=== PATIENT | male | born 1940 | race Caucasian/White ===

== ENCOUNTER 2019-01-28 08:14 | Day surgery (SDC) | payer OTHER ==
[2016-05-06 03:43] VITALS: BMI 23.5
[2019-01-28 09:24] VITALS: TEMP 97
[2019-01-28] MEDS ORDERED: LIDOCAINE 1% 20 ML MDV ID STA (09:25)
[2019-01-28] MEDS ORDERED: LIDOCAINE 1% 20 ML MDV ID ONE (09:44)
[2019-01-28] MEDS ORDERED: DIPRIVAN 20 ML VIAL IVP ONE (09:50)
[2019-01-28 13:55] VITALS: BP 168/78
--- NOTE | 2019-01-29 11:36 | OP ---
PROCEDURE: COLONOSCOPY TO THE CECUM. ENDOSCOPIST: Stephanie RODRIGUEZ M.D. INDICATION: CHANGE IN BOWEL HABITS. HISTORY OF POLYPS. INSTRUMENT: [employer]-190. MEDICATION: PER ANESTHESIA. PROCEDURE: The patient was positioned for colonoscopy. The digital rectal exam was negative. The colonoscope was inserted through the anus and advanced to the cecum. The cecum was identified using the ileocecal valve and the appendiceal orifice as landmarks. The scope was slowly withdrawn through an adequately prepped colon. No evidence of polyp or mass. A scattered diverticuli. Retroflex exam was otherwise normal. Withdraw time 8 minutes and 32 seconds. PLAN: 1. Repeat exam as needed. CC: Dr. Jeff MENDOZA
== END 2019-01-28 10:55 | disposition home or self-care (01) ==
LOC: SURG 08:14
PROVIDERS: ATTEND Internal Medicine Gastroenterology
DX: R10.9 Unspecified abdominal pain (principal); R19.4 Change in bowel habit; Z86.010 Personal history of colon polyps
CPT/HCPCS: 00812; G0105

== ENCOUNTER 2020-05-15 11:36 | Inpatient (IN) ==
[2020-05-15 12:18] VITALS: BMI 22.2
[2020-05-15 12:35] LABS: BASOPHILS % (AUTO) 0.2 % (0.0-3.0); EOSINOPHILS # (AUTO) 0.1 K/ul (0.0-0.7); EOSINOPHILS % (AUTO) 1.9 % (0.0-7.0); HEMATOCRIT 34.9 % (42.0-52.0); HEMOGLOBIN 12.3 g/dl (14.0-18.0); IMMATURE GRANULOCYTE % (AUTO) 0.9 % (0.0-5.0); LYMPHOCYTES % (AUTO) 21.3 (10.0-50.0); MEAN CORPUSCULAR HGB CONC 35.2 (31.8-35.4); MEAN CORPUSCULAR VOLUME 85.1 fl (80.0-94.0); MONOCYTES # (AUTO) 0.5 K/uL (0.4-2.0); MONOCYTES % (AUTO) 9.8 (0-10); NEUTROPHILS # (AUTO) 3.1 K/ul (2.0-6.9); NEUTROPHILS % (AUTO) 65.9 % (42.2-75.2); PLATELET COUNT 278 10^3/uL (140-440); RDW COEFFICIENT OF VARIATION 12.5 % (11.6-14.8)
[2020-05-15 12:54] LABS: ALANINE AMINOTRANSFERASE 109.6 U/L (0-50); ALBUMIN 4.23 g/dL (3.5-5.0); ALKALINE PHOSPHATASE 289.4 U/L (56-119); ASPARTATE AMINO TRANSFERASE 55.9 U/L (17-59); BILIRUBIN,TOTAL 0.73 mg/dL (0.2-1.3); BLOOD UREA NITROGEN 24.3 mg/dL (9-20); CALCIUM 10.54 mg/dL (8.4-10.2); CHLORIDE 96.8 mmol/L (98-107); CREATININE 1.61 mg/dL (0.60-1.10); GLUCOSE 214.7 mg/dL (74-106); POTASSIUM 4.15 mmol/L (3.5-5.1); SODIUM 133.6 mmol/L (134.5-145); TOTAL PROTEIN 7.75 g/dL (6.3-8.2)
--- NOTE | 2020-05-15 15:50 | RS.PTINEVL ---
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 pt states he has been falling at home due to weakness. Nursing reports pt began home health PT yesterday. Reports his last fall was on Mon in the bathroom of his home. - Level of function Abilities prior to this admission: prior to covid was independent with ADL's and amb without AD. pt has been using rwx and having assist of due to weakness from COVID Current Level of Function: Partially Dependent Current Equipment Used at Home: CANE, WALKER, CRUTCHES, GLUCOMETER, DM SUPPLIES, SPO2 MONITOR Pain Assessement - Location low back Description: Aching Pain Aggravating Factors: Changing Position Effects of Pain: pt reports a long history of low back pain. Interventions - Objective Patient Orientation: Person, Place, Time, Situation Current Interventions: IV's, Oxygen (2 liters), Telemetry Range of Motion - ROM Right Upper Extremity AROM: WFL's Left Upper Extremity AROM: WFL's Right Lower Extremity AROM: WFL's Left Lower Extremity AROM: WFL's Muscle Strength - Muscle Strength Right Upper Extremity Strength: Mild Weakness (grossly 4-/5) Left Upper Extremity Strength: Mild Weakness (grossly 4-/5) Right Lower Extremity Strength: Mild Weakness (hip flex 4-/5, knee flex/ext 4/5, ankle DF/PF 4/5) Left Lower Extremity Strength: Mild Weakness (hip flex 4-/5, knee flex/ext 4/5, ankle DF/PF 4/5) Sensation - Sensation Right Upper Extremity Sensation: Intact/Normal Left Upper Extremity Sensation: Intact/Normal Right Lower Extremity Sensation: Intact/Normal Left Lower Extremity Sensation: Intact/Normal Palpation Palpation Findings: None/Normal Balance - Sitting Balance and Reactions Static Sitting Balance: Good Dynamic Sitting Balance: Fair - Standing Balance and Reactions Static Standing Balance: Fair Dynamic Standing Balance: Poor Standing Equilibrium Reactions: Delayed Left, Delayed Right Standing Protective Reactions: Delayed Left, Delayed Right Functional Mobility - Bed Mobility Rolling R/L: Supervision Supine to Sit: Supervision - Transfers Sit to Stand: CGA Stand to Sit: CGA - Safety Awareness Safety Awareness: Fair YANIRA INDEX SCORE: n/a Ambulation - Ambulation Assistive Device Used: Rolling Walker Orthotic/Prosthetic Device: No Distance: 112ft Assistance needed with Ambulation: CGA Quality of Ambulation: pt amb with 2 liters O2. Gait Deviations: Forward posture, Short stride, Deviates from path Ambulation Comments: min SOA noted after amb. Factors Affecting Ambulation: Decreased Balance, Breathing/O2 Saturation, Weakness, Decreased Coordination, Decreased Safety, Limited Endurance Treatment time - Time with patient Length of Evaluation: 21 Total treatment time: 30 Patient Education - Education Patient Education: Activity Modification, Education of Plan of Care Teaching Recipient: Patient Teaching Methods: Discussion Comments: discussion regarding POC as well as safety precautions. Assessment - Assessment Problem List:: Decreased level of function, Requires training/education, Decreased safety/Risk of falls, Weakness Rehab Potential: Good Further Therapy Indicated?: Yes Candidate for Swing Bed for Therapy Services?: Feel pt may be a candidate for swing bed, will need to reassess on Monday05/18/20. Evaluation Complexity: HISTORY: Medium (h/o Covid, htn, oa, DM, falls), EXAM OF BODY SYSTEMS: Medium (strength, balance, gait, SOA), CLINICAL PRESENTATION: Medium, CLINICAL DECISION MAKING: Medium Patient's Goal(s): get stronger and return home Short Term Goals GOAL #1: pt independent with rolling, scooting in bed. Goal to be met by: 05/18/20 GOAL #2: Transfer sup to/from sit independently Goal to be met by: 05/18/20 GOAL #3: pt transfer sit to/from stand CGA Goal to be met by: 05/18/20 GOAL #4: Improve dyn stand balance fair- Goal to be met by: 05/18/20 GOAL #5: pt amb 120ft with rwx with O2 with CGA to SBA Goal to be met by: 05/18/20 Cribbing Setter Goals GOAL #1: pt independent with all transfers Goal to be met by: 05/20/20 GOAL #2: pt amb functional household distances with rwx and O2 with supervision Goal to be met by: 05/20/20 GOAL #3: Improve BLE strength 4 to 4+/5 Goal to be met by: 05/20/20 Plan Plan of Care: Therapeutic EX, Therapeutic Activity Other:: gait training Frequency of Treatment: 1-2 X day, as tolerated Duration of Treatment: 5 days Anticipated Discharge Destination: Home Treatment Diagnosis (ICD 10 Codes): personal history of COVID 19 Z86.19. gait difficulty R26.2. impaired balance R 26.81. weakness M62.81 Has the Physician been added for Co-signature?: Yes
--- NOTE | 2020-05-15 15:56 | RS.OTINEVL ---
Subjective - Patient information Date of Arrival on Unit: 05/15/20 Admitted From:: Home Diagnosis: Weakness and Falls PRECAUTIONS: Weakness, Falls, Usual Living Arrangement: With Spouse Living Arrangement Comments: LIVES WITH IN [facility]. 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), Diabetes, Arthritis Medical History Comments:: CAD LATEX ALLERGY?: No Surgical History: Hip Replacement, Cervical Spine (x 2), Lumbar Spine (x 2), Cholecystectomy Surgical History Comments:: shoulder surgery Medications: see chart - Level of function Current Equipment Used at Home: CANE, WALKER, CRUTCHES, GLUCOMETER, DM SUPPLIES, SPO2 MONITOR Pain Assessment - Pain Pain Score: 4 Side: bilateral Pain Location Body Site: Back Pain Aggravating Factors: ADL's, Changing Position, Standing Pain Alleviating Factors: Medication, Position Change Interventions - Objective Patient Orientation: Person, Place, Time, Situation Current Interventions: IV's, Oxygen, Telemetry Observation: Pt is weak and would benefit from occupational therapy to increase safety of functional transfers, increase strength for functional mobility and safety of self cares. Pt shows weakness with activity. Interventions - ROM Right Upper Extremity AROM: Slight limitation Left Upper Extremity AROM: WFL's - Strength Right Upper Extremity Strength: Mild Weakness Left Upper Extremity Strength: Mild Weakness - Sensation Right Upper Extremity Sensation: Intact/Normal Left Upper Extremity Sensation: Intact/Normal Balance - Sitting Balance Static Sitting Balance: Fair Dynamic Sitting Balance: Fair - Standing Balance Static Standing Balance: Poor Dynamic Standing Balance: Poor ADL Skills - Self Feeding Self Feeding: Independent - Grooming Grooming: CGA - Dressing Dressing UE: Min Assist Dressing LE: Min Assist - Toilet Management Toileting Management: Min Assist Functional Mobility - Bed Mobility Rolling R/L: CGA Scooting: CGA Supine to Sit: CGA - Transfers Sit to Stand: Supervision Stand to Sit: Supervision Stand Pivot Transfers: Supervision - Ambulation Weight Bearing Status: FWB Assistive Device Used: Rolling Walker Assistance needed with Ambulation: CGA - Safety Awareness Safety Awareness: Fair YANIRA INDEX SCORE: . Additional Treatment Performed - Time with patient Length of Evaluation: 20 Total treatment time: 23 Activities Do you enjoy playing games?: Yes Would you be interested in leaving your room for activities?: Yes Would you enjoy group activities?: Yes What types of things do you enjoy doing? Any Hobbies?: singing Patient Interests:: Visiting/Socializing Patient Education Patient Education: Education of diagnosis, Home Exercise Program, Education of Plan of Care Teaching Recipient: Patient Teaching Methods: Discussion Assessment Problem List:: Decreased level of function, Requires training/education, Decreased safety/Risk of falls, Weakness, Pain limits previous level of function Rehab Potential: Fair Further Therapy Indicated?: Yes Evaluation Complexity: HISTORY: Medium, EXAM OF BODY SYSTEMS: Medium, CLINICAL DECISION MAKING: Medium Patient's Goal(s): Pt wants to get stronger and return home with his spouse. Short Term Goals - Goals GOAL 1: Pt to be Supervision for toilet transfers with RW. Goal to be met by: 05/18/20 GOAL 2: Pt to increase BUE strength to 4/5 to increase (I) of ADLS. Goal to be met by: 05/19/20 GOAL 3: Pt to increase dyn. std. balance to Fair for self cares. Goal to be met by: 05/19/20 GOAL 4: Pt to increase activity tolerance to 10 minutes with rests PRN. Care Home Goals GOAL 1: Pt to be modified independent with ADLS. Goal to be met by: 05/22/20 GOAL 2: Pt to increase dyn. std. balance to Fair+ to complete sink Goal to be met by: 05/22/20 GOAL 3: Pt to increase BUE strength to 4+/5. Goal to be met by: 05/22/20 Plan Plan of Care: Therapeutic EX, Neuromuscular Re-Educ, Therapeutic Activity, Self- Care/Home Management Modalities: Hot Pack Frequency of Treatment: 1-2 X day, as tolerated Duration of Treatment: 1 Week Anticipated Discharge Destination: Home Treatment Diagnosis (ICD 10 Codes): Z86.19 Personal history of covid 19, Z84.1 Need help with personal care. M62.81 Weakness Has the Physician been added for Co-signature?: Yes
[2020-05-15] MEDS: ZITHROMAX PO SCH (16:41)
[2020-05-15] MEDS: SODIUM CHLORIDE 1,000 ML IV SCH (16:41)
[2020-05-15] MEDS: GLUCOTROL PO SCH (17:14)
[2020-05-16 05:33] LABS: BLOOD UREA NITROGEN 20.3 mg/dL (9-20); CALCIUM 9.83 mg/dL (8.4-10.2); CARBON DIOXIDE 28.6 mmol/L (22-30.0); CHLORIDE 99.3 mmol/L (98-107); CREATININE 1.36 mg/dL (0.60-1.10); GLUCOSE 248.7 mg/dL (74-106); POTASSIUM 4.69 mmol/L (3.5-5.1); SODIUM 134.7 mmol/L (134.5-145)
[2020-05-16] MEDS: PRILOSEC PO SCH (06:03)
[2020-05-16] MEDS: SODIUM CHLORIDE 1,000 ML IV SCH ×3 (06:06→21:36)
[2020-05-16] MEDS: ASPIRIN EC PO SCH (08:00)
[2020-05-16] MEDS: PLAVIX PO SCH (08:01)
[2020-05-16] MEDS: MULTIVITAMIN TABLET PO SCH (08:01)
[2020-05-16] MEDS: ZITHROMAX PO SCH (08:01)
[2020-05-16] MEDS: LOPRESSOR PO SCH (08:01)
[2020-05-16] MEDS: UROXATRAL PO SCH (08:01)
[2020-05-16] MEDS: GLUCOTROL PO SCH ×2 (08:01→16:52)
[2020-05-16] MEDS: HUMULIN R SUBCUT PRN ×3 (11:17→21:15)
[2020-05-17] MEDS: PRILOSEC PO SCH (06:07)
[2020-05-17 06:22] LABS: BLOOD UREA NITROGEN 17.4 mg/dL (9-20); CALCIUM 10.12 mg/dL (8.4-10.2); CARBON DIOXIDE 28.4 mmol/L (22-30.0); CHLORIDE 102.2 mmol/L (98-107); CREATININE 1.28 mg/dL (0.60-1.10); GLUCOSE 143.3 mg/dL (74-106); POTASSIUM 4.4 mmol/L (3.5-5.1); SODIUM 136.9 mmol/L (134.5-145)
[2020-05-17] MEDS: HUMULIN R SUBCUT PRN ×4 (06:50→20:20)
[2020-05-17] MEDS: UROXATRAL PO SCH (08:54)
[2020-05-17] MEDS: LOPRESSOR PO SCH (08:54)
[2020-05-17] MEDS: MULTIVITAMIN TABLET PO SCH (08:54)
[2020-05-17] MEDS: GLUCOTROL PO SCH ×2 (08:54→16:48)
[2020-05-17] MEDS: PLAVIX PO SCH (08:54)
[2020-05-17] MEDS: ZITHROMAX PO SCH (08:54)
[2020-05-17] MEDS: ASPIRIN EC PO SCH (08:55)
[2020-05-17] MEDS: SODIUM CHLORIDE 1,000 ML IV SCH ×3 (10:06→16:46)
[2020-05-18] MEDS: HUMULIN R SUBCUT PRN ×4 (05:27→20:38)
[2020-05-18] MEDS: TYLENOL #3 TAB PO PRN ×2 (05:28→18:42)
[2020-05-18] MEDS: PRILOSEC PO SCH (05:29)
[2020-05-18] MEDS: ASPIRIN EC PO SCH (09:26)
[2020-05-18] MEDS: LOPRESSOR PO SCH (09:27)
[2020-05-18] MEDS: PLAVIX PO SCH (09:27)
[2020-05-18] MEDS: MULTIVITAMIN TABLET PO SCH (09:27)
[2020-05-18] MEDS: UROXATRAL PO SCH (09:27)
[2020-05-18] MEDS: GLUCOTROL PO SCH ×2 (09:27→17:03)
[2020-05-18] MEDS: SODIUM CHLORIDE 1,000 ML IV SCH (09:28)
[2020-05-19] MEDS: PRILOSEC PO SCH (06:04)
[2020-05-19] MEDS: HUMULIN R SUBCUT PRN ×2 (06:29→14:22)
[2020-05-19] MEDS ORDERED: GLUCOTROL PO SCH (08:30)
[2020-05-19] MEDS: SODIUM CHLORIDE 1,000 ML IV SCH (08:39)
[2020-05-19] MEDS: ASPIRIN EC PO SCH (08:54)
[2020-05-19] MEDS: MULTIVITAMIN TABLET PO SCH (08:54)
[2020-05-19] MEDS: LOPRESSOR PO SCH (08:55)
[2020-05-19] MEDS: PLAVIX PO SCH (08:55)
[2020-05-19] MEDS: UROXATRAL PO SCH (08:55)
[2020-05-19 15:04] VITALS: BP 103/57; TEMP 97.8
--- NOTE | 2020-05-20 08:32 | OTDC ---
Date of Evaluation:05/15/20 Diagnosis:[Weakness and falls] Number of visits:[] Last Date of Service:[05/19/20] Reason For Discharge:[Pt discharged from acute to swing bed ] Discharge Summary:[Pt has been improving since his illness and is doing better with therapy. Pt discharged to swingbed for further rehabilitation. ] KELLY
== END 2020-05-19 15:16 | disposition swing bed (61) | DRG 947 ==
LOC: MEDSURG A 11:36
PROVIDERS: ADMIT Family Medicine; ATTEND Family Medicine